=== PATIENT | female | born 1985 | race Caucasian/White ===

== ENCOUNTER 2022-02-27 09:48 | Outpatient (CLI) | payer MEDICAID, SELFPAY ==
--- NOTE | 2022-02-27 09:57 | US_ITS ---
WS: [id number] OBSTETRICAL ULTRASOUND COMPLETE HISTORY: EVALUATION OF Condition, late ONSET OF CARE COMPARISON: None available. Single intrauterine gestation in Cephalic presentation. Cervix is Closed and normal length. Cervical length is 4.1 cm. Normal amount of amniotic fluid surrounds the fetus. Placenta: Posterior, no previa. No abruption. Placenta grade 1 Heart: 136 BPM. Four chambers are identified. RIGHT and LEFT outflow tracts are unremarkable. Anatomy: Intracranial structures are negative. No hydrocephalus. Limited spine. No abnormality identi fied but the entire soft tissue covering the spine is not well visualized. kidneys, stomach and urinary bladder are unremarkable. Abdominal wall, three-vessel cord and cord insertion site are norm al. 4 extremities are present. profile: Unremarkable. Gender: Female. measurements: BPD = 5.6 cm = 23w2d HC = 21.0 cm = 23w0d AC = 19.5 cm = 24w1d FL = 4.3 cm = 24w0d Biometry is internally concordant. Measurements are measuring less than the 2nd percentile for age bu t this is based upon the patient's LMP which may not be accurate. No first trimester ultrasound for c omparison. EFW: 645 g. Biometry is internally concordant. AGA by ultrasound: 23w6d ROXANA by ultrasound: 06/20/2022 US/US OB >= 14 weeks fetus [id number] IMPRESSION: 1. Single intrauterine gestation of 23w6d with an ROXANA of 06/20/2022. Measureme nts are internally concordant. Compared to the provided LMP biometry is measuri ng less than the 2nd percentile for age. This LMP may not be accurate resulting in a small for gestational age fetus. Consider short-term follow-up to evaluat e for appropriate growth going forward. 2. No anatomic abnormalities are identified.
== END 2022-02-27 09:49 | disposition home or self-care (01) ==
LOC: RAD 09:49
PROVIDERS: PCP Family Medicine; Visit Provider Nurse Practitioner Family
DX: O09.32 Supervision of pregnancy with insufficient antenatal care, second trimester (principal); Z3A.23 23 weeks gestation of pregnancy
CPT/HCPCS: 76805

== ENCOUNTER 2022-04-26 00:58 | Outpatient (CLI) | payer MEDICAID, SELFPAY ==
[2022-04-26] VITALS (11 sets, daily range): BP systolic 114–140; BP diastolic 58–71; PULSE 60–79; RESP 18; TEMP 35.9–36.2; O2SAT 98; BMI 80.8
== END 2022-04-26 03:05 | disposition home or self-care (01) ==
LOC: OPOB 01:01 → OBGYN 01:02
PROVIDERS: PCP Family Medicine; Visit Provider Family Medicine
DX: O26.899 Other specified pregnancy related conditions, unspecified trimester (principal); Z3A.00 Weeks of gestation of pregnancy not specified; R19.7 Diarrhea, unspecified
CPT/HCPCS: 59025; 99211

== ENCOUNTER → 2022-05-16 16:23 | Outpatient (BNVA) | payer MEDICAID, SELFPAY | PROVIDERS: PCP Family Medicine; Visit Provider Family Medicine Adult Medicine | DX: B37.31 Acute candidiasis of vulva and vagina (principal); B37.9 Candidiasis, unspecified; R39.9 Unspecified symptoms and signs involving the genitourinary system | CPT/HCPCS: 81000 ==

== ENCOUNTER → 2023-07-15 13:30 | Outpatient (BNVA) | payer MEDICAID, SELFPAY | PROVIDERS: PCP Family Medicine; Visit Provider Registered Nurse Neonatal Intensive Care | DX: J02.9 Acute pharyngitis, unspecified (principal) | CPT/HCPCS: 87880 ==

== ENCOUNTER → 2025-02-17 18:06 | Outpatient (BNVA) | payer MEDICAID, SELFPAY | PROVIDERS: PCP Family Medicine; Visit Provider Family Medicine | DX: R10.9 Unspecified abdominal pain (principal) | CPT/HCPCS: 87070 ==

== ENCOUNTER → 2025-02-18 15:57 | Outpatient (BNVA) | payer MEDICAID, SELFPAY | PROVIDERS: PCP Family Medicine; Visit Provider Family Medicine | DX: R10.9 Unspecified abdominal pain (principal) | CPT/HCPCS: 87177; 87209 ==

== ENCOUNTER → 2025-02-22 09:47 | Outpatient (BNVA) | payer MEDICAID, SELFPAY | PROVIDERS: PCP Family Medicine; Visit Provider Family Medicine | DX: N34.1 Nonspecific urethritis (principal); A49.3 Mycoplasma infection, unspecified site | CPT/HCPCS: 81000; 87086 ==

== ENCOUNTER 2025-03-30 20:01 | Emergency (ER) | payer MEDICAID, SELFPAY ==
--- OUTSIDE RECORDS SUMMARY | 2025-03-30 20:07 | XMS_ITS | Patient Health Record ---
Author Organization [facility] Address [address] 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 Up Name Role Phone Juanis Bates Unavailable [phone] Allergies No Known Allergies Results Component Value Reference Range Flag Notes Test, Urine - 8102 5 Reviewed date:09/14/2024 10:51:59 AM Interpretation: Performing Lab: Notes/Report: Test, Urine neg Pap w/High Risk HPV 50000, 8 8175 Reviewed date:09/14/2024 05:08:50 PM Interpretation: Performing Lab: Notes/Report: Miscellaneous Test Reviewed date:12/26/2024 02:56:29 PM Interpretation: Performing Lab: Notes/Report: Misc Sent to Ref Lab Name of Misc Test Mycoplasma genitaliu m, Mycoplasma species, Ureapla NA Miscellaneous Test Reviewed date:09/14/2024 05:08:50 PM Interpretation: Performing Lab: Notes/Report: Misc Sent to Ref Lab Name of Misc Test Mycoplasma genitaliu m, Mycoplasma hominis, Ureaplasma species NA US OB Early Gest-[id number] Reviewed date:08/29/2024 09:07:35 PM Interpretation: Performing Lab: Notes/Report: See Below For Report US OB Early Gest Read See Below For Report Leukorrhea - 91593, 17991, 8 7660, 75249, 28496 Reviewed date:12/26/2024 02:56:29 PM Interpretation: Performing Lab: Notes/Report: Chlamydia Sent to Ref Lab,resu lt in clinical notes Gonorrhea Sent to Ref Lab,resu lt in clinical notes Trichomonas Sent to Ref Lab Leukorrhea - 85296, 95232, 8 7660, 83163, 18651 Reviewed date:09/14/2024 05:08:50 PM Interpretation: Performing Lab: Notes/Report: Chlamydia Sent to Ref Lab,resu lt in clinical notes Gonorrhea Sent to Ref Lab,resu lt in clinical notes Trichomonas Sent to Ref Lab Reason For Referral No Information Medications Medication SIG (Take, Route, Frequency, Duration) Notes Start Date End Date Status Active Social History Tobacco Use: Social History Observation Description Date Details (start date - stop date) Never Smoker NA - NA Social History Tobacco Use: Social Info Question Answer Notes Tobacco Control (Standard) Tobacco use: Nonsmoker Additional Details Category Social Info Options Details Drugs/Alcohol: Do you smoke marijuana? De nies Do you drink alcohol? No Section Notes: Negative x3, lives with husb and and kids, safe, denies h/o abuse, SAHM Negative x3, lives with husb and and kids, safe, denies h/o abuse, SAHM Vital Signs Heart Rate 92 /min 09/14/2024 Respiratory Rate 18 /min 09/14/2024 Blood pressure diastolic 80 mm Hg 09/14/2024 Oximetry 97 % 09/14/2024 Height-cm 160.02 cm 12/25/2024 Weight-kg 94.3 kg 09/14/2024 Height 63 in 12/25/2024 Blood pressure systolic 110 mm Hg 09/14/2024 Weight 207.89 lbs 09/14/2024 BMI 36.82 kg/m2 09/14/2024 Encounters Encounter Location Date Provider Diagnosis [address] [place] [address] 08/29/2024 Juanis Bates SAB (spontaneous ) O03.[address] [place] [address] 09/14/2024 Juanis Bates Encounter for other specified aftercare Z51.89 ; Complete or unspecified spontaneous without complication O03.9 ; Vaginal discharge N89.8 and Patient desires Z31.[address] [place] [address] 12/25/2024 Juanis Bates Vaginal discharge N89.[address] [place] [address] 08/21/2024 Juanis Bates [address] [place] [address] 08/29/2024 Juanis Bates [address] [place] [address] 10/04/2024 Juanis Bates [address] [place] [address] 01/08/2025 Juanis Bates Assessments Encounter Date Diagnosis (ICD Code) Assessment Notes Treatment Notes Treatment Clinical Notes Section Notes 08/29/2024 SAB (spontaneous ) (ICD-10 - O03.9) 09/14/2024 Encounter for other specified aftercare (ICD-10 - Z51.89) exam wnl, mood sad but coping, screening pap today, not going to prevenet , If it happens they are ok with that Pt worried about her progesterone being low, it was low when checked this , 09/14/2024 Complete or unspecified spontaneous without complication (ICD-10 - O03.9) 12/25/2024 Vaginal discharge (ICD-10 - N89.8) Patient preformed self-swab. Informed pt to continue Dr. Bates plan of care. Informed pt that Dr. Bates would be reviewing the results and that she would get a phone call once results were reviewed. Keep her scheduled follow up with Dr. Bates 09/14/2024 Vaginal discharge (ICD-10 - N89.8) screening pap done, Propath done today 09/14/2024 Patient desires (ICD-10 - Z31.9) continue PNV, pelvic rest until normal cycle and then can try again. Pt is a [facility] patient, can call [facility] when gets and ask for progesterone Plan Of Treatment Next Appt Details Provider Name:Juanis bennett, 09/15/2027 01:00:00 PM, [address] [place] [address] [address], [place], [address], Insurance Providers Payer Name Payer Address Payer Phone Subscriber Number Group Number Insured Name Patient Relationship to Insured Coverage Start Date Coverage End Date Home [facility] Medicaid Replacement [address] [place] [address] [id number] ZANA PHAN Self - patient is the insured [place] Medicaid [address] [place] [address] [id number] ZANA PHAN Self - patient is the insured Medical (General) History Surgical History Surgery Date(Month/Year) tonsillectomy wisdom teeth
[2025-03-30 20:20] VITALS: BP 119/81; PULSE 82; RESP 16; TEMP 36.7; O2SAT 98; BMI 35.4
--- NOTE | 2025-03-30 21:09 | CTR_ITS ---
PROCEDURE INFORMATION: Exam: CT Abdomen And Pelvis With Contrast Exam date and time: 03/30/2025 10:50 PM Age: 39 years old Clinical indication: Abdominal pain; Localized; Lower abd pain with rectal bleeding; Additional info: Abd pain, gi bleeding TECHNIQUE: Imaging protocol: Computed tomography of the abdomen and pelvis with contrast. Radiation optimization: All CT scans at this facility use at least one of these dose optimization techniques: automated exposure control; mA and/or kV adjustment per patient size (includes targeted exams where dose is matched to clinical indication); or iterative reconstruction. Contrast material: OMNI 350; Contrast volume: 100 ml; Contrast route: INTRAVENOUS (IV); COMPARISON: US OB >= 14 weeks fetus [id number] 02/27/2022 10:17 AM RADIATION DOSE METRICS: Total DLP (mGy-cm): 872.66 FINDINGS: Lower chest: Heart size normal. Lungs are clear. Fatty change of the liver. 2.1 cm cyst posterior left lobe of the liver. Liver: Normal. No mass. Gallbladder and biliary ducts: Normal. No calcified stones. No ductal dilation. Pancreas: Normal. No ductal dilation. Spleen: Normal. No splenomegaly. Adrenal glands: Normal. No mass. Kidneys and ureters: Small bilateral renal cysts the largest which is on the right 1.18 cm in diameter. No follow-up imaging. No hydronephrosis Benign simple renal cyst requiring no follow-up. (Reference: Poly) References: Poly HAGAN, et al. Bosniak Classification of Cystic Renal Masses, Version 2019: An Update Proposal and Needs Assessment. Radiology. 2019;292(2):475-488. Stomach and bowel: Stomach and small bowel unremarkable. Mild amount of material colon. No significant wall thickening. No distension. Appendix: No evidence of appendicitis. Intraperitoneal space: Unremarkable. No free air. No significant fluid collection. Vasculature: Unremarkable. No abdominal aortic aneurysm. Lymph nodes: Unremarkable. No enlarged lymph nodes. Urinary bladder: Unremarkable as visualized. Reproductive: Unremarkable as visualized. Bones/joints: Unremarkable. No acute fracture. Soft tissues: Unremarkable. CT/CT abdomen pelvis w con* [id number] IMPRESSION: 1. No acute findings. 2. Fatty change of the liver. 3. Simple left renal cyst. No follow-up imaging recommended. No further follow-up is recommended. (Reference: [place]) References: Ramy LYONS, et al. Management of Incidental Liver Lesions on CT: A White Paper of the ACR Incidental Findings Committee. J Am Adonay Radiol. 2017;14(11):0250-9385. 4. Small bilateral renal cysts. No follow-up imaging recommended. 5. Unremarkable stomach, small bowel and colon.
[2025-03-30 21:28] LABS: Hematocrit 40.4 % (36-47); Hemoglobin 13.50 g/dL (11.27-16.99); Mean Corpuscular HGB Conc 33.4 g/dL (30-55); Mean Corpuscular Hemoglobin 27.3 pg (27-33); Mean Corpuscular Volume 81.8 fl (85-98); Nucleated Red Blood Cells % 0 %; Platelet Count 320 10^3/cmm (157-399); Red Blood Count 4.94 10^6/uL (3.85-5.65); White Blood Count 9.02 10^3/uL (3.29-11.43)
[2025-03-30 21:51] LABS: HCG, Serum Qual Negative (Negative)
[2025-03-30 21:54] LABS: INR 0.90 (0.8-1.2); Prothrombin Time 12.80 SECONDS (12.1-14.9)
[2025-03-30 21:58] LABS: Alanine Aminotransferase 30 U/L (0-33); Albumin Level 4.4 g/dL (3.5-5.2); Alkaline Phosphatase 51 U/L (35-105); Anion Gap 15.7 (5-19); Aspartate Amino Transferase 19 U/L (0-32); Blood Urea Nitrogen 14 mg/dL (6-20); Calcium 9.3 mg/dL (8.5-10.5); Carbon Dioxide 24 mmol/L (22-29); Chloride 106 mmol/L (98-107); Creatinine Clr Calc Pharmacy 100.9441; Globulin 3.0 g/dL (1.3-4.6); Glucose 77 mg/dL (65-115); Lipase 45 U/L (13-60); Osmolality Calculated 293 mOsm/kg (285-295); Potassium 3.7 mmol/L (3.5-5.1); Sodium 142 mmol/L (136-145); Total Protein 7.4 g/dL (6.6-8.7)
--- NOTE | 2025-03-30 22:18 | W.ED.GIBLEED ---
HPI - GI Bleed General: Chief complaint: GI Bleed Stated complaint: bleeding from rectum Time Seen by Provider: 03/30/25 21:01 History of Present Illness: Patient is a 39-year-old female who presents to the ED with rectal bleeding. She reports that yesterday she experienced intense abdominal cramping and diarrhea, which she initially attributed to food poisoning. Today, she noticed bright red blood per rectum, including what appeared to be clots (patient has photographic evidence on her phone). She denies fever or vomiting. The patient reports that the abdominal pain has largely subsided since yesterday, with only mild tenderness in the lower abdomen (rated 1-2/10). She attempted self-treatment with [place] tablets which provided minimal relief for her sour feeling. Patient specifically mentions that this bleeding is not related to her menstrual cycle, as her period ended at least three days ago. She expressed concern about the bleeding as it reminded her of when her son had Campylobacter infection with similar symptoms. Related Data Previous Rx's ?Medication ?Instructions ?Recorded azithromycin 250 mg tablet See Rx Instructions PO .COMPLEX #6 03/21/25 (Zithromax Z-Magdy) tabs hydrocortisone acetate 25 mg 25 mg MA BID #12 ea 03/31/25 rectal suppository (Anusol-HC) Allergies Allergy/AdvReac Type Severity Reaction Status Date / Time No Known Allergies Allergy Verified 02/22/25 09:24 [facility] ED PFS: Medical History Vaginal yeast infection Viral URI Social History Smoking and tobacco/nicotine status: never used tobacco/nicotine Female Reproductive History: Date of last menstrual period: 03/26/25 Physical Exam Const: COMMON NORMALS: no acute distress GENERAL APPEARANCE: cooperative; not ill appearing and not frail appearing HENMT: COMMON NORMALS: normocephalic, atraumatic and Normal external nose present HEAD & SCALP: normocephalic and atraumatic FACE & SINUS: normal facial exam and face symmetric NOSE: Normal external nose present Eye: COMMON NORMALS: Equal, round and reactive pupils present and EOMs intact bilaterally PUPIL: Yes Equal, round and reactive pupils present Neck/C-Spine: GENERAL: Yes trachea midline Chest: CHEST: Yes Symmetrical chest wall rise Resp: COMMON NORMALS: normal respiratory effort, No retractions, No use of accessory muscles and clear to auscultation bilaterally AUSCULTATION: clear to auscultation bilaterally Cardio: COMMON NORMALS: regular rate and regular rhythm RATE: regular rate RHYTHM: regular rhythm GI: COMMON NORMALS: Normal to inspection, nondistended, normoactive bowel sounds present Extremity: COMMON NORMALS: no pedal edema Neuro: YASMEEN COMA SCALE: document GCS findings [place] coma scale eye opening: Spontaneous Yasmeen coma scale verbal response: Orientated Yasmeen coma scale motor response: Obey commands Yasmeen coma scale total score: 15 SENSORY EXAM: Yes extremities (intact) Psych: COMMON NORMALS: speech normal SPEECH: Yes normal speech Skin: COMMON NORMALS: no rashes or lesions noted GENERAL SKIN EXAM: no rashes or lesions noted Course Vital Signs: Vital signs: Vital Signs Temperature 98.1 F 03/30/25 20:20 Pulse Rate 59 L 03/31/25 00:14 Respiratory Rate 16 03/31/25 00:14 Blood Pressure 138/89 03/31/25 00:14 Pulse Oximetry 96 03/31/25 00:14 Oxygen Delivery Me thod Room Air 03/30/25 20:20 MDM - GI Bleed Medical Decision Making Vitals are stable. She is afebrile. Her blood cell count is normal. CRP is 3. BMP is normal. hCG is negative. She has been to CAT scan. No acute findings. No colitis, etc. Rectal exam reveals no significant fissure. Small hemorrhoid present at the 6 PM position with no active bleeding. Should be prescribed hydrocortisone. To return for worsening bleeding, pain, etc. Lab Data 03/30/25 21:21 03/30/25 21:21 Radiology Impressions Abdomen/Pelvis CT 03/30/25 21:09 IMPRESSION: 1. No acute findings. 2. Fatty change of the liver. 3. Simple left renal cyst. No follow-up imaging recommended. No further follow-up is recommended. (Reference: Ramy) References: Ramy LYONS, et al. Management of Incidental Liver Lesions on CT: A White Paper of the ACR Incidental Findings Committee. J Am Adonay Radiol. 2017;14(11):9628-7918. 4. Small bilateral renal cysts. No follow-up imaging recommended. 5. Unremarkable stomach, small bowel and colon. Laboratory Results WBC 9.02 10^3/uL (3.29-11.43) 03/30/25 21: RBC 4.94 10^6/uL (3.85-5.65) 03/30/25 21:21 Hgb 13.50 g/dL (11.27-16.99) 03/30/25 21:21 Hct 40.4 % (36-47) 03/30/25 21:21 MCV 81.8 fl (85-98) L 03/30/25 21:21 MCH 27.3 pg (27-33) 03/30/25 21: MCHC 33.4 g/dL (30-55) 03/30/25 21: RDW 12.7 % (12.1-15.1) 03/30/25 21:21 Plt Count 320 10^3/cmm (157-399) 03/30/25 21:21 MPV 9.0 fL (7.4-10.4) 03/30/25 21: Neut % (Auto) 59.2 % 03/30/25 21:21 Lymph % (Auto) 30.7 % 03/30/25 21:21 Taylor % (Auto) 7.3 % 03/30/25 21:21 Eos % (Auto) 2.0 % 03/30/25 21: Baso % (Auto) 0.6 % 03/30/25 21:21 Neut # (Auto) 5.34 10^3/uL (1.8-7.7) 03/30/25 21: Lymph # (Auto) 2.8 10^3/uL (0.8-4.8) 03/30/25 21:21 Taylor # (Auto) 0.7 10^3/uL (0.2-0.9) 03/30/25 21: Eos # (Auto) 0.2 10^3/uL (0.0-0.8) 03/30/25 21:21 Baso # (Auto) 0.1 10^3/uL (0.0-0.1) 03/30/25 21:21 Nucleated RBC % (auto) 0 % 03/30/25 21: Nucleated RBCs # 0.0 /100WBC 03/30/25 21:21 PT 12.80 SECONDS (12.1-14.9) 03/30/25 21:21 INR 0.90 (0.8-1.2) 03/30/25 21:21 Sodium 142 mmol/L (136-145) 03/30/25 21:21 Potassium 3.7 mmol/L (3.5-5.1) 03/30/25 21:21 Chloride 106 mmol/L (98-107) 03/30/25 21:21 Carbon Dioxide 24 mmol/L (22-29) 03/30/25 21:21 Anion Gap 15.7 (5-19) 03/30/25 21:21 BUN 14 mg/dL (6-20) 03/30/25 21:21 Creatinine 0.8 mg/dL (0.5-0.9) 03/30/25 21:21 GFR Calculation 79.9 mL/min (90-130) L 03/30/25 21:21 Glucose 77 mg/dL (65-115) 03/30/25 21:21 Calculated Osmolality 293 mOsm/kg (285-295) 03/30/25 21:21 Calcium 9.3 mg/dL (8.5-10.5) 03/30/25 21:21 Total Bilirubin 0.2 mg/dL (0.15-1.2) 03/30/25 21:21 AST 19 U/L (0-32) 03/30/25 21:21 ALT 30 U/L (0-33) 03/30/25 21:21 Alkaline Phosphatase 51 U/L (35-105) 03/30/25 21:21 C-Reactive Protein 3.0 mg/L (0.0-4.9) 03/30/25 21:21 Total Protein 7.4 g/dL (6.6-8.7) 03/30/25 21:21 Albumin 4.4 g/dL (3.5-5.2) 03/30/25 21:21 Globulin 3.0 g/dL (1.3-4.6) 03/30/25 21:21 Lipase 45 U/L (13-60) 03/30/25 21:21 HCG, Qual Negative (Negative) 03/30/25 21:21 All radiology interpretation(s) finalized by discharge Discharge Plan Discharge Patient Disposition: Home Clinical Impression: Rectal bleeding Condition: Stable Prescriptions: New hydrocortisone acetate [Anusol-HC] 25 mg suppository 25 mg MA BID Qty: 12 0RF No Action azithromycin [Zithromax Z-Magdy] 250 mg tablet See Rx Instructions PO .COMPLEX Qty: 6 0RF Rx Instructions: take 500 mg today (day 1), then 250 mg for 4 days (days 2-5) PO Discharge Orders: Discharge ED (Routine); Ordered 03/31/25 Ordered By: David Sykes Referrals: Brijesh Luna DO [Primary Care Provider, [facility]] - 4-7 days Patient Instructions: Rectal Bleeding (ED), Opioid Safety, Pain Management, Patient Portal & Dayana Instructions Activity Restrictions/Additional Instructions: Use the suppositories twice a day for the next 3 days. Return for worsening rectal bleeding despite treatment, worsening abdominal pain, vomiting, bloody diarrhea, etc. Follow-up with your doctor next week. 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
[2025-03-30] MEDS: iohexol 350 mg/mL 500 mL Btl (per mL) IV (22:44)
[2025-03-30 23:25] VITALS: BP 155/96; PULSE 63; O2SAT 98
[2025-03-30 23:36] VITALS: BP 129/86; PULSE 67; O2SAT 96
[2025-03-31 00:14] VITALS: BP 138/89; PULSE 59; RESP 16; O2SAT 96
== END 2025-03-31 00:13 | disposition home or self-care (01) ==
PROVIDERS: Emergency Provider Emergency Medicine; PCP Family Medicine
DX: K62.5 Hemorrhage of anus and rectum (principal)
CPT/HCPCS: 36415; 74177; 80053; 83690; 84703; 85025; 85610; 86140; 99285

== ENCOUNTER → 2025-05-28 07:26 | Outpatient (BNVA) | payer MEDICAID, SELFPAY | PROVIDERS: PCP Family Medicine | DX: R30.0 Dysuria (principal); A49.3 Mycoplasma infection, unspecified site | CPT/HCPCS: 81000; 87086 ==